=== PATIENT | female | born 1965 | race African-American/Black ===

== ENCOUNTER 2018-10-12 12:14 | Inpatient (IN) | payer MEDICAID ==
[~2018-10-12] VITALS: Ht 162.6 cm; Wt 79.8 kg
[2018-10-12 13:17] LABS: BASOPHILS % 1.3 % (0.0-2.0); EOSINOPHILS % 2.2 % (0.0-5.0); LYMPHOCYTES % 24.8 % (20.0-50.0); MEAN CORPUSCULAR HEMOGLOBIN 17.6 pg (28.0-32.0); MEAN CORPUSCULAR VOLUME 61.6 fL (81.0-99.0); MEAN PLATELET VOLUME 7.1 fl (7.4-10.4); NEUTROPHILS % 66.7 % (40.0-76.0); PLATELET 487 x1000/uL (130-400); RED BLOOD CELL COUNT 3.18 mill/uL (4.2-5.4); RED CELL DISTRIBUTION WIDTH 19.9 % (11.6-14.6)
[2018-10-12 13:19] LABS: HEMATOCRIT. 19.6 % (36.0-48.0); HEMOGLOBIN. 5.6 g/dL (12.0-16.0)
[2018-10-12 13:23] LABS: CHLORIDE 105 mEq/L (98-107)
[2018-10-12 13:28] LABS: ETHANOL BLOOD < 10 mg/dL
[2018-10-12 13:47] LABS: PLATELET ESTIMATE INCREASED
[2018-10-12 15:13] LABS: CLARITY URINE TURBID (CLEAR); COLOR URINE YELLOW (YELLOW); KETONES URINE TRACE (NEGATIVE); LEUKOCYTE ESTERASE URINE 3+ (NEGATIVE); NITRITE URINE NEGATIVE (NEGATIVE); OCCULT BLOOD URINE TRACE (NEGATIVE); PROTEIN URINE 1+ (NEGATIVE); SPECIFIC GRAVITY URINE 1.025 (1.005-1.030); UROBILINOGEN URINE 0.2 E.U./dL (0.2-1.0)
[2018-10-12 15:34] LABS: *AMPHETAMINES SCREEN URINE NEGATIVE (NEGATIVE); *BARBITURATES SCREEN URINE NEGATIVE (NEGATIVE); *BENZODIAZEPINES SCREEN URINE NEGATIVE (NEGATIVE)
[2018-10-12 15:35] LABS: *COCAINE SCREEN URINE NEGATIVE (NEGATIVE); CANNABINOID URINE SCREEN PRESUMTIVE POSITIVE (NEGATIVE); METHADONE URINE SCREEN NEGATIVE (NEGATIVE); OPIATES URINE SCREEN NEGATIVE (NEGATIVE); PHENCYCLIDINE URINE SCREEN NEGATIVE (NEGATIVE)
[2018-10-12 17:01] LABS: MEAN CORPUSCULAR HEMOGLOBIN 18.9 pg (28.0-32.0); MEAN CORPUSCULAR VOLUME 63.7 fL (81.0-99.0); PLATELET 415 x1000/uL (130-400); RED BLOOD CELL COUNT 3.08 mill/uL (4.2-5.4); RED CELL DISTRIBUTION WIDTH 21.8 % (11.6-14.6)
[2018-10-12 17:12] LABS: HEMATOCRIT 19.6 % (36.0-48.0); HEMOGLOBIN 5.8 g/dL (12.0-16.0)
[2018-10-12 18:23] VITALS: BP 119/63
[2018-10-12 20:00] VITALS: BP 124/83
[2018-10-12] MEDS ORDERED: LORAZEPAM 0.5MG TABLET PO PRN (21:00)
[2018-10-12] MEDS ORDERED: HYDROCODONE/ACETAMINOPHEN 5/325MG TABLET PO PRN (21:00)
[2018-10-12] MEDS ORDERED: ACETAMINOPHEN 325MG TABLET PO PRN (21:00)
[2018-10-12] MEDS ORDERED: DOCUSATE SODIUM 100MG CAPSULE PO PRN (21:00)
[2018-10-12] MEDS ORDERED: ONDANSETRON HCL 4MG/2ML INJ IV PRN (21:00)
[2018-10-12] MEDS ORDERED: IPRATROPIUM/ALBUTEROL 0.5-3(2.5)MG/3ML NEB INH PRN (21:00)
[2018-10-12 21:02] VITALS: BP 124/83
[2018-10-12 21:31] LABS: TOTAL IRON BINDING CAPACITY 504 ug/dL (250-450)
[2018-10-12 21:54] LABS: FERRITIN < 5 ng/mL (10-291)
[2018-10-12 22:01] LABS: VITAMIN B12 SERUM 366 pg/mL (211-911)
[2018-10-12 22:06] LABS: FOLIC ACID (FOLATE) SERUM > 20.00 ng/mL (>5.38)
[2018-10-12 22:53] LABS: HEMATOCRIT 21.5 % (36.0-48.0)
[2018-10-12 22:56] LABS: HEMOGLOBIN 6.4 g/dL (12.0-16.0)
[2018-10-12 23:00] LABS: PROTHROMBIN TIME 10.6 sec (9.6-11.0)
[2018-10-13] VITALS (9 sets, daily range): BP systolic 109–142; BP diastolic 56–87
[2018-10-13] MEDS: FERROUS SULFATE 325MG TABLET PO SCH ×2 (08:15→12:12)
[2018-10-13 08:42] LABS: HEMATOCRIT 26.9 % (36.0-48.0)
[2018-10-13] MEDS ORDERED: DOCU-138 PO ×2 (12:24→12:25)
[2018-10-13] MEDS ORDERED: FERR325T23 PO (12:24)
== END 2018-10-13 17:30 | disposition home or self-care (01) | DRG 532 ==
LOC: ER 12:14 → 5WST 13:40 → EDBEDREQ 13:42 → ENRESERV 14:44
PROVIDERS: ADMIT Internal Medicine; ATTEND Internal Medicine
PROC: 30233N1 Transfusion of Nonautologous Red Blood Cells into Peripheral Vein, Percutaneous Approach (ICD-10-PCS; principal; 2018-10-12)
DX: N92.0 Excessive and frequent menstruation with regular cycle (principal); D25.9 Leiomyoma of uterus, unspecified; R93.89 Abnormal findings on diagnostic imaging of other specified body structures; F12.90 Cannabis use, unspecified, uncomplicated; D64.9 Anemia, unspecified
CPT/HCPCS: 36415; 76830; 76856; 80305; 80320; 82607; 82728; 82746; 83540; 83550; 85014; 85018; 85027; 86850; 86900; 86920; 99291; J7040; J7050; P9016; G0480

== ENCOUNTER 2019-04-26 09:28 | Day surgery (SDC) | payer MEDICAID ==
[~2019-04-26] VITALS: Ht 165.1 cm; Wt 87.1 kg
[~2019-04-26 09:28] MED LIST: DOCU-138 PO; FERR325T23 PO
[2019-04-26] MEDS ORDERED: LACTATED RINGERS 1,000 ML IV SCH (09:30)
[2019-04-26] MEDS ORDERED: FENTANYL CITRATE/PF 50MCG/ML 2ML VIAL ONE (11:00)
[2019-04-26] MEDS ORDERED: PROPOFOL 200MG/20ML VIAL IV ONE (11:00)
[2019-04-26] MEDS ORDERED: MIDAZOLAM HCL 2 MG/2 ML VIAL ONE (11:00)
[2019-04-26] MEDS ORDERED: ATOR20TA65 PO (11:01)
[2019-04-26] MEDS ORDERED: IBUP-2271 PO (11:01)
[2019-04-26] MEDS ORDERED: CHOL200026 PO (11:01)
[2019-04-26 11:02] LABS: BASOPHILS % 0.5 % (0.0-2.0); HEMATOCRIT. 22.2 % (36.0-48.0); HEMOGLOBIN. 7.2 g/dL (12.0-16.0); LYMPHOCYTES % 18.5 % (20.0-50.0); MEAN CORPUSCULAR HEMOGLOBIN 30.8 pg (28.0-32.0); MEAN CORPUSCULAR VOLUME 94.7 fL (81.0-99.0); MEAN PLATELET VOLUME 7.6 fl (7.4-10.4); MONOCYTES % 5.3 % (2.0-8.0); NEUTROPHILS % 72.7 % (40.0-76.0); PLATELET 376 x1000/uL (130-400); RED BLOOD CELL COUNT 2.34 mill/uL (4.2-5.4); RED CELL DISTRIBUTION WIDTH 14.7 % (11.6-14.6)
[2019-04-26 11:09] LABS: HCG SCREEN NEGATIVE
[2019-04-26 11:11] LABS: CHLORIDE 111 mEq/L (98-107); PARTIAL THROMBOPLASTIN TIME 24.1 sec (23.4-31.0); PROTHROMBIN TIME 10.1 sec (9.6-11.0)
[2019-04-26 11:19] LABS: CLARITY URINE CLEAR (CLEAR); COLOR URINE YELLOW (YELLOW); KETONES URINE NEGATIVE (NEGATIVE); LEUKOCYTE ESTERASE URINE 1+ (NEGATIVE); NITRITE URINE NEGATIVE (NEGATIVE); OCCULT BLOOD URINE 3+ (NEGATIVE); PROTEIN URINE TRACE (NEGATIVE); UROBILINOGEN URINE 0.2 E.U./dL (0.2-1.0)
[2019-04-26] MEDS ORDERED: ONDANSETRON HCL 4MG/2ML INJ ONE (11:28)
[2019-04-26] MEDS ORDERED: DEXAMETHASONE 4MG/ML 1ML VIAL ONE (11:28)
[2019-04-26] MEDS ORDERED: ONDANSETRON HCL 4MG/2ML INJ IV PRN (11:30)
[2019-04-26] MEDS ORDERED: LABETALOL 5MG/ML SYR 20 MG/4 ML SYRINGE IV PRN (11:30)
[2019-04-26] MEDS ORDERED: HYDROMORPHONE HCL/PF 2MG/ML CPJ IV PRN (11:30)
[2019-04-26] MEDS ORDERED: MEPERIDINE HCL/PF 25MG/ML CPJ IV PRN (11:30)
[2019-04-26] MEDS ORDERED: FUROSEMIDE 40MG/4ML VIAL ONE (12:00)
[2019-04-26] MEDS ORDERED: IBUP-2030 MT (12:34)
== END 2019-04-26 15:00 | disposition home or self-care (01) ==
LOC: OR 09:28
PROVIDERS: ATTEND Obstetrics & Gynecology
DX: D25.0 Submucous leiomyoma of uterus (principal); D64.9 Anemia, unspecified; N92.1 Excessive and frequent menstruation with irregular cycle; E78.00 Pure hypercholesterolemia, unspecified; Z79.899 Other long term (current) drug therapy; Z82.49 Family history of ischemic heart disease and other diseases of the circulatory system
CPT/HCPCS: 36415; 58561; 71045; 80053; 81003; 84703; 85025; 85610; 85730; 86850; 86900; 86901; 88305; 93005; J1100; J1940; J2250; J2405; J2704; J3010